=== PATIENT | female | born 1960 | race Caucasian/White ===

== ENCOUNTER 2017-05-09 02:47 | Inpatient (IN) | payer OTHER ==
[~2017-05-09] VITALS: Ht 167.6 cm; Wt 105.2 kg
[~2017-05-09 02:47] MED LIST: CIPRO500 MG PO; FLAGYL500MG PO; LOSARTAN POTASS50 MG; ZANTAC150 MG PO
== END 2017-05-15 13:06 | disposition home or self-care (01) | DRG 392 ==
LOC: ER 02:47 → SEC-K 12:53 → MEDI 12:53
PROC: BW21ZZZ Computerized Tomography (CT Scan) of Abdomen and Pelvis (ICD-10-PCS; principal; 2017-05-09)
PROC: BW21Y0Z Computerized Tomography (CT Scan) of Abdomen and Pelvis using Other Contrast, Unenhanced and Enhanced (ICD-10-PCS; 2017-05-12)
DX: K57.32 Diverticulitis of large intestine without perforation or abscess without bleeding (principal); E86.0 Dehydration

== ENCOUNTER 2018-01-02 09:04 | Emergency (ER) | payer OTHER ==
[~2018-01-02] VITALS: Ht 167.6 cm; Wt 111.1 kg
== END 2018-01-02 13:17 | disposition home or self-care (01) ==
LOC: ER 09:04
DX: K57.92 Diverticulitis of intestine, part unspecified, without perforation or abscess without bleeding (principal)

== ENCOUNTER 2018-01-05 02:03 | Emergency (ER) | payer OTHER ==
[~2018-01-05] VITALS: Ht 167.6 cm; Wt 108.9 kg
== END 2018-01-05 15:37 | disposition home or self-care (01) ==
LOC: ER 02:03
DX: K57.90 Diverticulosis of intestine, part unspecified, without perforation or abscess without bleeding (principal)

== ENCOUNTER 2018-12-27 16:04 | Inpatient (IN) | payer OTHER ==
[~2018-12-27] VITALS: Ht 170.2 cm; Wt 136.1 kg
[2018-12-31] MEDS ORDERED: CIPRO500 MG PO (14:27)
[2018-12-31] MEDS ORDERED: FLAGYL500MG PO (14:27)
[2018-12-31] MEDS ORDERED: INTESTINEX680 M1 PO (14:28)
== END 2018-12-31 15:16 | disposition home or self-care (01) | DRG 379 ==
LOC: ER 16:04 → SEC-K 22:57 → MEDJ 12-28 13:08
PROVIDERS: ADMIT Internal Medicine
PROC: BW21YZZ Computerized Tomography (CT Scan) of Abdomen and Pelvis using Other Contrast (ICD-10-PCS; principal; 2018-12-27)
DX: K57.33 Diverticulitis of large intestine without perforation or abscess with bleeding (principal); I10 Essential (primary) hypertension; D72.828 Other elevated white blood cell count; E66.01 Morbid (severe) obesity due to excess calories; E11.9 Type 2 diabetes mellitus without complications; Z79.4 Long term (current) use of insulin

== ENCOUNTER 2019-03-21 08:30 | Inpatient (IN) | payer OTHER ==
[~2019-03-21] VITALS: Ht 167.6 cm; Wt 113.4 kg
[~2019-03-21 08:30] MED LIST changes: +INTESTINEX680 M1 PO
[2019-03-21] MEDS ORDERED: PROBIOTIC1 EAC2 PO (14:55)
[2019-03-29] MEDS ORDERED: PRILOSEC OTC20 MG PO (09:02)
[2019-03-29] MEDS ORDERED: PERCOCET 5-3251 EACH PO (09:02)
[2019-03-29] MEDS ORDERED: INTESTINEX680 M1 PO (09:02)
== END 2019-03-29 13:01 | disposition home or self-care (01) | DRG 331 ==
LOC: SURG 03-26 06:30 → O/R 03-26 06:30 → SURG 03-26 15:08
PROVIDERS: ADMIT Colon & Rectal Surgery
PROC: 0DJD8ZZ Inspection of Lower Intestinal Tract, Via Natural or Artificial Opening Endoscopic (ICD-10-PCS; 2019-03-26)
PROC: 4A033R1 Measurement of Arterial Saturation, Peripheral, Percutaneous Approach (ICD-10-PCS; 2019-03-26)
PROC: 4A12X4Z Monitoring of Cardiac Electrical Activity, External Approach (ICD-10-PCS; 2019-03-26)
PROC: 0DTN4ZZ Resection of Sigmoid Colon, Percutaneous Endoscopic Approach (ICD-10-PCS; principal; 2019-03-26 10:45)
DX: K57.32 Diverticulitis of large intestine without perforation or abscess without bleeding (principal); I11.9 Hypertensive heart disease without heart failure; E66.01 Morbid (severe) obesity due to excess calories; G47.33 Obstructive sleep apnea (adult) (pediatric)

== ENCOUNTER 2020-05-01 07:00 | Day surgery (SDC) | payer OTHER ==
[~2020-05-01 07:00] MED LIST changes: +PERCOCET 5-3251 EACH PO; +PRILOSEC OTC20 MG PO; +PROBIOTIC1 EAC2 PO
== END 2020-05-01 13:50 | disposition home or self-care (01) ==
LOC: AMB-ENDOS 07:00
PROVIDERS: ATTEND Colon & Rectal Surgery
DX: K57.32 Diverticulitis of large intestine without perforation or abscess without bleeding (principal); K64.1 Second degree hemorrhoids; Z20.822 Contact with and (suspected) exposure to COVID-19

== ENCOUNTER 2022-12-17 14:24 | Emergency (ER) | payer OTHER ==
[~2022-12-17] VITALS: Ht 167.6 cm; Wt 111.1 kg
[2022-12-17 16:54] LABS: HEMATOCRIT 44.4 % (36.0-45.00); HEMOGLOBIN 15.2 g/dL (12.0-15.00); MEAN CELL VOLUME 95.1 fL (80.00-100.00); MEAN CORPUSCULAR HEMOGLOBIN 32.7 pg (27.00-32.0); MEAN CORPUSCULAR HGB CONC 34.3 g/dl (32.0-36.0); PLATELET COUNT 279 K/uL (150-450); RED BLOOD COUNT 4.66 M/uL (4.00-6.00); RED CELL DISTRIBUTION WIDTH 13.9 % (11.5-14.5)
[2022-12-17] MEDS ORDERED: MEDROLPACK PO (18:59)
[2022-12-17] MEDS ORDERED: DIABETIC TUSSI118 M3 PO (18:59)
[2022-12-17] MEDS ORDERED: ZITHROMAX500 MG PO (18:59)
== END 2022-12-17 19:07 | disposition home or self-care (01) ==
LOC: ER 14:24
PROVIDERS: Nurse Practitioner Family
DX: J06.9 Acute upper respiratory infection, unspecified (principal); I10 Essential (primary) hypertension; Z20.822 Contact with and (suspected) exposure to COVID-19